=== PATIENT | male | born 1985 | race African-American/Black ===

== ENCOUNTER 2022-02-03 20:53 | Emergency (ER) | payer OTHER ==
[~2022-02-03] VITALS: Ht 188 cm; Wt 81.8 kg
[~2022-02-03 20:53] MED LIST: HCTZ PO
[2022-02-03] MEDS ORDERED: PERTUSS(ACELL),DIPH,TET VAC/PF 0.5 ML SYRINGE IM. ONE (21:30)
[2022-02-03] MEDS ORDERED: BACITRACIN 0.9 GM PACKET OINTMENT TP ONE (21:30)
[2022-02-03] MEDS ORDERED: POVIDONE-IODINE 10% 15 ML SOLUTION UD TP ONE (21:30)
[2022-02-03] MEDS ORDERED: OxyCODONE HCL/ACETAMINOPHEN 10-325 MG TABLET PO ONE (21:30)
[2022-02-03] MEDS ORDERED: LIDOCAINE 1% 10 ML VIAL ID ONE (21:45)
[2022-02-03] MEDS ORDERED: LIDOCAINE 1%/EPI 1:200,000/PF 30 ML VIAL PERC ONE (21:45)
[2022-02-03] MEDS ORDERED: CEPH-558 PO (23:07)
[2022-02-03 23:10] VITALS: BP 147/84
== END 2022-02-03 23:39 | disposition home or self-care (01) ==
LOC: EMS 20:55
DX: S61.412A Laceration without foreign body of left hand, initial encounter (principal); S61.213A Laceration without foreign body of left middle finger without damage to nail, initial encounter; S61.012A Laceration without foreign body of left thumb without damage to nail, initial encounter; W25.XXXA Contact with sharp glass, initial encounter; Y93.89 Activity, other specified; Y92.89 Other specified places as the place of occurrence of the external cause; Y99.8 Other external cause status
CPT/HCPCS: 12004; 73090; 73130; 90471; 90715; 99284; J3490 ×2

== ENCOUNTER 2022-09-10 07:53 | Emergency (ER) | payer OTHER ==
[~2022-09-10] VITALS: Ht 188 cm; Wt 84.1 kg
[~2022-09-10 07:53] MED LIST changes: +CEPH-558 PO
[2022-09-10] MEDS ORDERED: OXYC1TAB6 PO (07:59)
[2022-09-10] MEDS ORDERED: SODIUM CHLORIDE 0.9% 100 ML ONE (09:15)
[2022-09-10] MEDS ORDERED: IOHEXOL 350 MG/ML 100 ML VIAL ONE (09:15)
[2022-09-10] MEDS ORDERED: 0.9% SODIUM CHLORIDE 10 ML SYRINGE IVP PRN (09:15)
[2022-09-10] MEDS ORDERED: CEFEPIME HCL 2 GM in DEXTROSE 5%-WATER 50 ML IV ONE (09:15)
[2022-09-10] MEDS ORDERED: RINGERS LACTATED IV ONE (09:15)
[2022-09-10 09:23] LABS: BASOPHILS % (AUTO) 0.6 % (0.0-2.0); EOSINOPHILS % (AUTO) 1.2 % (1.0-6.0); HEMATOCRIT 21.2 % (41-53); HEMOGLOBIN 7.1 g/dL (13.5-17.5); LYMPHOCYTES # (AUTO) 1.6 K/uL (1.0-4.8); LYMPHOCYTES % (AUTO) 18.3 % (22.0-44.0); MEAN CORPUSCULAR HEMOGLOBIN 31.3 pg (26.0-34.0); MEAN CORPUSCULAR HGB CONC 33.4 G/dL (31.0-37.0); MEAN CORPUSCULAR VOLUME 94 fL (80-100); MONOCYTES # (AUTO) 0.4 K/uL (0.1-1.0); MONOCYTES % (AUTO) 4.6 % (2.0-9.0); NEUTROPHILS # (AUTO) 6.6 K/uL (1.8-7.7); NEUTROPHILS % (AUTO) 75.3 % (40.0-70.0); PLATELET COUNT (AUTO) 430 K/uL (150-450); RED BLOOD CELL COUNT(AUTO) 2.25 MIL/uL (4.50-5.90); RED CELL DISTRIBUTION WIDTH 14.4 % (11.5-14.5)
[2022-09-10 09:31] LABS: ANION GAP 6 mmol/L (8-16); CALCIUM, TOTAL 9.6 mg/dL (8.8-10.5); CARBON DIOXIDE 28 mmol/L (22-29); CHLORIDE 102 mmol/L (98-107); CREATININE 1.01 mg/dL (0.60-1.30); GLUCOSE,RANDOM 99 mg/dL (70-110); POTASSIUM 3.8 mmol/L (3.5-5.1); UREA NITROGEN, BLOOD 8 mg/dL (7-18)
[2022-09-10 09:32] LABS: GLOMERULAR FILTR. RATE CALC > 60 mL/min (>60); SODIUM SERUM 136 mmol/L (136-145)
[2022-09-10 09:37] LABS: ALANINE AMINOTRANSFERASE 41 U/L (12-78); ALBUMIN 3.5 g/dL (3.4-5.0); ALKALINE PHOSPHATASE 86 U/L (46-116); ASPARTATE AMINOTRANSFERASE 42 U/L (15-37); BILIRUBIN,TOTAL 0.9 mg/dL (0.1-1.0); TOTAL PROTEIN, SERUM 8.1 g/dL (6.4-8.2)
[2022-09-10 09:40] LABS: PROTHROMBIN TIME 10.9 SEC (9.4-11.6)
[2022-09-10 10:05] LABS: LACTIC ACID 0.9 mmol/L (0.4-2.0)
[2022-09-10] MEDS ORDERED: VANCOMYCIN 1GM/WATER(PEG/NADA) 200 ML IV ONE ×2 (10:30→16:15)
[2022-09-10 10:33] LABS: COVID AG,FIA SOURCE NASAL SWAB
[2022-09-10 13:03] LABS: APPEARANCE,URINE CLEAR (CLEAR); BILIRUBIN,URINE NEGATIVE (NEGATIVE); GLUCOSE, URINE (UA) NEGATIVE (NEGATIVE); KETONES,URINE NEGATIVE (NEGATIVE); LEUKOCYTE ESTERASE ,URINE NEGATIVE (NEGATIVE); NITRATE,URINE NEGATIVE (NEGATIVE); OCCULT BLOOD,URINE NEGATIVE (NEGATIVE); PROTEIN,URINE 30-70 mg/dL (NEGATIVE); SPECIFIC GRAVITIY, URINE 1.049 (1.003-1.030); UROBILINOGEN,URINE <=1.0 mg/dL (<=1.0)
[2022-09-10 13:45] VITALS: BP 140/76
[2022-09-10 14:00] VITALS: BP 133/79
[2022-09-10 14:15] VITALS: BP 141/90
[2022-09-10 14:45] VITALS: BP 149/92
[2022-09-10 15:15] VITALS: BP 142/80
[2022-09-10 18:28] VITALS: BP 130/75
== END 2022-09-10 19:00 | disposition short-term general hospital (02) ==
LOC: EMS 07:57
DX: K91.870 Postprocedural hematoma of a digestive system organ or structure following a digestive system procedure (principal); Z20.822 Contact with and (suspected) exposure to COVID-19; F10.20 Alcohol dependence, uncomplicated; F12.90 Cannabis use, unspecified, uncomplicated
CPT/HCPCS: 99285; 36430; 74177; 96365; 71045; 96367; 96366; 87426; 80053; 81003; 83605; 84484; 85025; 85610; 87040; 86850; 86900; 86901; 86923; 36415; 93005; P9016; J0692; Q9967; J7060; J7120; J7050